=== PATIENT | female | born 1950 | race Two or more races ===

== ENCOUNTER → 2024-05-24 | Outpatient (CLI) | payer OTHER, SELFPAY ==
--- NOTE | 2024-05-24 | XR_ITS ---
Examination: Tibia-Fibula, right , 2 views Technique: Tibia-fibula AP lateral 2 views Date and time of exam: May 24, 2024 0816 hours INDICATIONS: Right lower leg pain beginning 6 months ago FINDINGS: Prominent osteopenia. No fracture or dislocation. No cortical bone destruction IMPRESSION: No fracture or dislocation
[2024-05-24 09:41] LABS: Basophils % (Auto) 0 % (0-2.5); Eosinophils # (Auto) 0.1 Thou/mm3 (0.0-0.5); Eosinophils % (Auto) 2 % (0-10); Hematocrit 36.7 % (36.0-46.0); Hemoglobin 12.2 g/dL (12.0-16.0); Immature Granulocytes % (Auto) 0 % (0-0); Immature Granulocytes Auto 0.02 Thou/mm3 (0.00-0.00); Lymphocytes # (Auto) 2.9 Thou/mm3 (1.0-4.8); Lymphocytes % (Auto) 32 % (10-50); Mean Corpuscular HGB Conc 33.2 g/dl (31.0-37.0); Mean Corpuscular Hemoglobin 27.3 pg (25.0-35.0); Mean Corpuscular Volume 82 fL (80-100); Monocytes # (Auto) 0.6 Thou/mm3 (0.0-0.8); Monocytes % (Auto) 7 % (0-12); Neutrophils # (Auto) 5.2 Thou/mm3 (1.8-7.7); Neutrophils % (Auto) 59 % (37-80); Nucleated Red Blood Cell % 0 /100 WBC (0); Platelet Count 296 Thou/mm3 (140-440); RDW Standard Deviation 40.2 fL (36.4-46.3); Red Blood Count 4.47 Miln/mm3 (4.00-5.20); White Blood Count 8.8 Thou/mm3 (3.6-11.0)
[2024-05-24 09:52] LABS: Glucose Estimated Average 151 mg/dL (80-131); Hemoglobin A1C 6.9 % Hgb (4.8-6.0)
[2024-05-24 09:55] LABS: Alanine Aminotransferase 15 U/L (10-49); Albumin, Serum 4.6 gm/dL (3.4-4.8); Alkaline Phosphatase 62 U/L (46-116); Anion Gap 10 (7-16); Aspartate Amino Transferase 16 U/L (0-34); BUN/Creatinine Ratio 17 Ratio (12-20); Bilirubin,Total 0.3 mg/dL (0.3-1.2); Blood Urea Nitrogen 12 mg/dL (9-23); Calcium 9.9 mg/dL (8.3-10.6); Calcium (Corrected) 9.9 mg/dL (8.5-10.1); Carbon Dioxide 25.7 mMol/L (20.0-31.0); Cardiac Risk Estimate 3.3 RATIO (3.7-5.6); Chloride 103 mMol/L (98-107); Cholesterol 177 mg/dL (132-200); Creatinine (Component) 0.7 mg/dL (0.6-1.3); Globulin 2.3 gm/dL (2.3-3.5); Glucose 120 mg/dL (74-106); HDL Cholesterol 54 mg/dL (40-60); LDL Cholesterol,Calculated 79 mg/dL (0-130); Osmolality,Calculated 278 (275-295); Potassium 4.6 mMol/L (3.4-5.1); Sodium 139 mMol/L (136-145); Total Protein 6.9 gm/dL (5.7-8.2); Triglycerides 221 mg/dL (30-150); eGFR > 60 See Note
[2024-05-30 06:59] LABS: Fecal Globin Result NOT DETECTED (NOT DETECTED)
== END | disposition home or self-care (01) ==
LOC: CDIM 07:34 → COPL 08:28
PROVIDERS: PCP Family Medicine; Referring Provider Family Medicine; Visit Provider Family Medicine
DX: Z12.11 Encounter for screening for malignant neoplasm of colon (principal); E11.65 Type 2 diabetes mellitus with hyperglycemia; M79.604 Pain in right leg
CPT/HCPCS: 36415; 73590; 80053; 80061; 82274; 83036; 85025; G0328

== ENCOUNTER 2024-06-26 14:56 | Emergency (ER) | payer OTHER, SELFPAY ==
[2024-06-26 15:08] VITALS: BP 181/91; BP 183/87; PULSE 71; RESP 20; TEMP 36.9; O2SAT 97
--- NOTE | 2024-06-26 15:19 | EKG_ITS ---
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: : 1950 Requested By: Arielle Adams Order Number: [id number] Reading MD: Arielle Adams Measurements Intervals [employer] [employer] Rate: 60 P: 76 CT: 198 QRS: -40 QRSD: 119 T: 70 QT: 473 QTc: 474 Interpretive Statements SINUS RHYTHM WITH OCCASIONAL SUPRAVENTRICULAR PREMATURE COMPLEXES LEFT AXIS DEVIATION [QRS AXIS < -30] LOW QRS VOLTAGE IN PRECORDIAL LEADS [QRS DEFLECTION < 1.0 mV IN CHEST LEADS] ANTEROSEPTAL MYOCARDIAL INFARCTION , OF INDETERMINATE AGE [40+ ms Q WAVE IN V1-V4] Compared to ECG 01/14/2024 10:12:50 Left-axis deviation now present Atrial fibrillation no longer present Myocardial infarct finding still present /store/S0/[id number]/ecg/[id number].pdf
--- NOTE | 2024-06-26 15:19 | XR_ITS ---
Examination: PA lateral chest 2 views TECHNIQUE: Upright PA lateral chest 2 views Exam date and time: June 26, 2024 1643 hours Comparison March 31, 2019 MEDICATIONS: Versed chest pain today FINDINGS: On the lateral view obscuration detail posterior right hemidiaphragm consistent with pneumonia in the posterior basal segment right lower lobe Left lung clear Minimal prominence left ventricle No pulmonary edema IMPRESSION: Early pneumonia posterior basal segment right lower lobe
--- NOTE | 2024-06-26 15:19 | XR_ITS ---
Examination: CT brain head without contrast. 2-D sagittal coronal reconstructions Date and time of exam:June 19 at 1615 hours INDICATIONS: Headaches weakness dizziness beginning last night CTDI: vol (mGy):55.3 DLP: (mGycm):1056 Technique: Multiple CT axial sections of the brain have been obtained, 5 mm slice thickness. Contrast has not been administered. 2-D sagittal, coronal reconstructions have been obtained Low dose protocols were performed. One or more of the following dose reduction techniques were used; automated exposure control, adjustment of the mA and/or KV according to patient size, use of iterative reconstruction technique. Findings: No significant ventricular enlargement. Intra-axial or extra-axial hemorrhage density is not seen. No mass effect or midline shift Basal cisterns are not remarkable. Fourth ventricle is midline. Cranial vault intact. Impression: Negative for acute hemorrhage, mass effect or midline shift If symptoms persist, consider brain MRI follow-up
--- NOTE | 2024-06-26 15:22 | PD.EDRME ---
Rapid Medical Screening Exam RME Arrival date/time: 06/26/24 14:56 This is a 74 year old female with multiple complaints. Patient complains of weakness, dizziness, shortness of breath and headache. I have greeted and performed a focused initial assessment of this patient. Initial appropriate labs ordered at this time. A comprehensive ED assessment and evaluation of the patient and analysis of all test and completion of medical decision making process will be conducted by additional ED provider. Chief Complaint: Dizziness Time Seen by Provider: 06/26/24 15:07 Vital signs: Vital Signs Temperature 98.4 F 06/26/24 15:08 Pulse Rate 71 06/26/24 15:08 Respiratory Rate 20 06/26/24 15:08 Blood Pressure 183/87 H 06/26/24 15:08 Pulse Oximetry (%) 97 06/26/24 15:08 Oxygen Delivery Method Room Air 06/26/24 15:08
[2024-06-26 15:40] LABS: Collection Type, Urine Voided
[2024-06-26 15:50] LABS: Basophils # (Auto) 0.1 Thou/mm3 (0.0-0.2); Basophils % (Auto) 0 % (0-2.5); Eosinophils # (Auto) 0.1 Thou/mm3 (0.0-0.5); Eosinophils % (Auto) 1 % (0-10); Hematocrit 36.2 % (36.0-46.0); Hemoglobin 12.1 g/dL (12.0-16.0); Immature Granulocytes % (Auto) 1 % (0-0); Immature Granulocytes Auto 0.08 Thou/mm3 (0.00-0.00); Lymphocytes % (Auto) 27 % (10-50); Mean Corpuscular HGB Conc 33.4 g/dl (31.0-37.0); Mean Corpuscular Hemoglobin 27.6 pg (25.0-35.0); Mean Corpuscular Volume 83 fL (80-100); Monocytes # (Auto) 0.8 Thou/mm3 (0.0-0.8); Monocytes % (Auto) 7 % (0-12); Neutrophils # (Auto) 7.3 Thou/mm3 (1.8-7.7); Neutrophils % (Auto) 64 % (37-80); Nucleated Red Blood Cell % 0 /100 WBC (0); Platelet Count 318 Thou/mm3 (140-440); Red Blood Count 4.38 Miln/mm3 (4.00-5.20); White Blood Count 11.3 Thou/mm3 (3.6-11.0)
[2024-06-26 16:01] LABS: B-Type Natriuretic Peptide 54 pg/mL (0-100)
[2024-06-26 16:03] LABS: Alanine Aminotransferase 11 U/L (10-49); Albumin, Serum 4.7 gm/dL (3.4-4.8); Albumin/Globulin Ratio 1.8 (1.2-2.2); Alkaline Phosphatase 76 U/L (46-116); Anion Gap 10 (7-16); Aspartate Amino Transferase 13 U/L (0-34); BUN/Creatinine Ratio 14 Ratio (12-20); Bilirubin,Total 0.2 mg/dL (0.3-1.2); Blood Urea Nitrogen 10 mg/dL (9-23); Calcium 9.6 mg/dL (8.3-10.6); Calcium (Corrected) 9.6 mg/dL (8.5-10.1); Carbon Dioxide 24.1 mMol/L (20.0-31.0); Chloride 102 mMol/L (98-107); Creatinine (Component) 0.7 mg/dL (0.6-1.3); Estimated Creatinine Clearance 69.3 mL/min (>60); Globulin 2.6 gm/dL (2.3-3.5); Glucose 204 mg/dL (74-106); Osmolality,Calculated 276 (275-295); Potassium 4.2 mMol/L (3.4-5.1); Sodium 136 mMol/L (136-145); Total Protein 7.3 gm/dL (5.7-8.2); Troponin I < 0.020 ng/mL (0.0-0.045); eGFR > 60 See Note
[2024-06-26 16:04] LABS: Bacteria,Urine 3+; Bilirubin,Urine Negative (Negative); Blood,Urine Trace (Negative); Color,Urine Lt-Yellow (Lt Yel-Yel); Glucose, Urine Negative (Negative); Ketones,Urine Negative (Negative); Leukocyte Esterase,Urine Positive (Negative); Nitrite,Urine Negative (Negative); Protein,Urine Negative (Neg - Trace); RBC,Urine 8 /hpf (0-3); Specific Gravity,Urine 1.008 (1.001-1.035); Squamous Epithelial Cell,Urine 3 /hpf (0-5); Transitional Epi Cells,Urine 1 /hpf (0-5); Urobilinogen,Urine Negative mg/dL (0.0-1.0); WBC,Urine 391 /hpf (0-5)
[2024-06-26 16:05] LABS: Clarity,Urine Cloudy (Clear/Hazy); Culture Indicated,Urine Yes
--- NOTE | 2024-06-26 16:56 | EDNOTE_ITS ---
<Statement entered by Karla Nunn MD - 06/27/24 14:42> As co-signing physician, I was present and available for consult prn. I concur with the plan and care as documented by the midlevel provider. ED General RME/HPI General Chief complaint: Dizziness Stated complaint: FEELS SO WEAK, DIZZY, SOB, HEADACHE R) CROWN Time Seen by Provider: 06/26/24 15:07 Arrival date/time: 06/26/24 14:56 CC: Weakness nausea chest pain painful urination HPI onset after having a syncopal episode night after going to the bathroom. The patient states he is continued to be weak. Currently at the time of the exam the patient only has weakness and nausea. No other complaints at this time. RME / HPI RME / HPI narrative: 06/26/24 14:56 This is a 74 year old female with multiple complaints Related Data Home Medications ?Medication ?Instructions ?Recorded ?Confirmed aspirin 81 mg tablet,delayed 1 tab PO HS ##0 12/26/13 01/13/24 release (Aspir-) metformin 1,000 mg tablet 1,000 mg PO BID #0 tabs 12/0101/13/24 (Glucophage) omega 1-lzg-qth-fish oil 1,000 mg 1 tab PO DAILY #0 ca ps 12/26/13 01/13/24 (120 mg-180 mg) capsule (Fish Oil) glipizide 5 mg tablet 5 mg PO TID 09/04/17 4 insulin glargine 100 unit/mL 28 unit subcut QDAY 09/0401/13/24 subcutaneous solution (Lantus U-100 Insulin) vitamin E 268 mg (400 unit) capsule 400 unit PO QDAY 0 09/04/17 01/13/24 semaglutide 0.25 mg or 0.5 mg (2 0.25 mg subcut QWEEK 11/10/23 01/13/24 mg/1.5 mL) subcutaneous pen injector (Ozempic) ramipril 10 mg capsule 10 mg PO BID 01/13/24 Previous Rx's ?Medication ?Instructions ?Recorded acetaminophen 300 mg-codeine 30 mg 1 tab PO Q4H PRN pa in #20 tabs 01/14/24 tablet cephalexin 500 mg capsule 500 mg PO BID #3 caps ciprofloxacin HCl 500 mg tablet 500 mg PO BID #14 tabs 06/26/24 (Cipro) Allergies Allergy/AdvReac Type Severity Reaction Status Date / Time No Known Allergies Allergy Verified 06/26/24 15:02 Review of Systems Review of Systems Narrative Review of Systems: GEN: No fever, no chills, no weight loss EYES: No discharge, no visual changes, no pain HEENT: No ear pain, no congestion, no sore throat PULM: No shortness of breath, no cough, no congestion CV: + chest pain, no dyspnea on exertion, no palpitations GI: No nausea, no vomiting, no diarrhea, no pain, no constipation : No frequency, no urgency, no dysuria MUSC/SKEL: No joint pain, no back pain SKIN: No rash PSYCH: No hallucinations, no depression HEME/LYMPH: No easy bleeding or bruising tendencies NEURO: + weakness, no headache Past Medical History Past Medical History NEUROLOGIC: Negative Neurological Disorders or Seizures CARDIAC: Positive Cardiac Disorders, Hypertension and Varicose Veins; Negative Congestive Heart Failure RESPIRATORY: Positive Pneumonia; Negative Chronic Obstructive Pulmonary Disease (COPD) GASTROINTESTINAL: Positive Gastrointestinal Disorders (Diarrhea), Gall Bladder Disease, Gastroesophageal Reflux Disease and Obesity; Negative Hepatitis GENITOURINARY: Negative Genitourinary Disorders or Renal Disease REPRODUCTIVE: Positive Previous Pregnancies (X4) MUSCULOSKELETAL: Positive Musculoskeletal Disorders and Degenerative Disk Disease ENT: Positive Ear Infection ENDOCRINE: Positive Endocrine Disorders and Diabetes Mellitus Type 2 (TAKES PO MED AND INSULIN); Negative Diabetes Mellitus Type 1 HEMATOLOGIC: Positive Blood Disorders and Anemia (in the past) PSYCHO/SOCIAL: Positive Depression OTHER HISTORY: Positive Hospitalization and Autoimmune Disease; Negative Shingles, Falls, Blood Transfusions, Blood Transfusion Reaction, Anesthesia Reactions or Cancer Family History FAMILY HISTORY: Positive Family Cardiac Disorders (MOTHER (HTN)), Family Cancer (BROTHER) and Family Surgery (BROTHER,MOTHER,SISTER); Negative Family Psychiatric Problems, Family Respiratory Disorders, Family Gastrointestinal Problems or Family Anesthesia Reaction Surgical History SURGICAL: Positive Angiogram (coronary, clear), Ear Surgery (LEFT 08/2017), Tonsillectomy, Abdominal Surgery, Arthroscopy (RIGHT), Lumpectomy (LIONEL), Hysterectomy (LIONEL SALP) and Section (X1); Negative Cardiac Surgery Social History SMOKING STATUS: Never smoker SUBSTANCE USE: does not use ED Exam Narrative Physical exam: [General: Obese not in any acute distress Head normocephalic HEENT: Eyes pupils are PERRLA EOMs are intact mouth pink dry membranes uvula is midline swallow symmetrical phonation is normal. Within acceptable limits Neck is supple nontender Chest equal chest rise nontender to palpation Respiratory: Clear to auscultation no wheezes crackles or rubs CV: Rate rhythm is regular no murmurs rubs or clicks Abdomen is distended secondary to body habitus soft nontender no masses positive bowel sounds all 4 quadrants Back: No CVA tenderness no spinous process tenderness from cervical spine thoracic and lumbar spine Skin: Intact no petechiae rash induration ulceration or crepitus Extremities: Moving all extremity against resistance cap refill less than 2 seconds neurosensory intact Neuro: Awake alert oriented x3 Glascow coma 15 no focal deficits] Course Quality Measures none Orders Category Date Time Status EKG (ED ONLY) *Do not use* NOW Care 06/26/24 15:[address] head/brain wo con Stat Exams 06/26/24 15:19 Completed EKG (ED Only) Stat Exams 06/26/24 15:19 Draft XR chest 2V Stat Exams 06/26/24 15:19 Completed BNP [B-Type Natriuretic Peptide] Stat Lab 06/26/24 15:33 Completed CBC Stat Lab 06/26/24 15:33 Completed Comprehensive Metabolic Panel Stat Lab 06/26/24 15:33 Completed Troponin I Stat Lab 06/26/24 15:33 Completed Urinalysis, C/S if Indicated Stat Lab 06/26/24 15:36 Completed Urine Culture Stat Lab 06/26/24 15:36 Received Ondansetron Odt [Zofran Odt] Med 06/26/24 17:03 Discontinued 4 mg PO X1 ONE cefTRIAXone [Rocephin] 1,000 mg Med 06/26/24 17:03 Discontinued Lidocaine 1% 20 ml [Xylocaine 1% 20 ML] 2.1 ml IM X1 Vital Signs Vital signs: Vital Signs Temperature 98.4 F 06/26/24 15:08 Pulse Rate 71 06/26/24 15:08 Respiratory Rate 20 06/26/24 15:08 Blood Pressure 183/87 H 06/26/24 15:08 Pulse Oximetry (%) 97 06/26/24 15:08 Oxygen Delivery Method Room Air 06/26/24 15:08 Discharge Plan Plan Patient Disposition: HOME (Self Care) Patient condition on transfer: Stable Prescriptions/Referrals Prescriptions/Med Rec: New ciprofloxacin HCl [Cipro] 500 mg tablet 500 mg PO BID Qty: 14 0RF No Action aspirin [Aspir-81] 81 mg Tablet,Delayed Release (Dr/Ec) 1 tab PO HS Qty: 0 metformin [Glucophage] 1,000 MG tablet 1,000 mg PO BID Qty: 0 omega 9-mxv-mvp-fish oil [Fish Oil] 1,000 mg (120 mg-180 mg) Capsule 1 tab PO DAILY Qty: 0 glipizide 5 mg Tablet 5 mg PO TID insulin glargine [Lantus U-100 Insulin] 100 unit/mL Solution 28 unit SUB-Q QDAY vitamin E 400 unit Capsule 400 unit PO QDAY Ozempic 0.25 mg or 0.5 mg(2 mg/1.5 mL) Pen Injector 0.25 mg SUBCUT QWEEK Rx Instructions: for 4 weeks ramipril 10 mg Capsule 10 mg PO BID cephalexin 500 mg capsule 500 mg PO BID Qty: 3 0RF Rx Instructions: Begin first dose tonight acetaminophen-codeine 300-30 mg tablet 1 tab PO Q4H PRN (Reason: pain) Qty: 20 0RF Referrals: Antonino Veliz MD [Primary Care Provider] - In 1 week Problem List Clinical Impression: Acute UTI, Weakness Patient/Caregiver Discharge Instructions Other Activity Instructions:: Take the medications as prescribed if there is a worsening of symptoms return the emergency room medially for further evaluation. Education Materials: Urinary Tract Infections in Women Print Language: Croatian Stand Alone Forms: Hallie Award Info., Patient Portal Info Letter MDM Patient Acuity Low Acuity (complete MDM as needed) Clinical Information Provided by: patient Medical Records reviewed [facility] Meds/Rx considered, not ordered None Labs/Rad/Tests considered, not ordered None Chronic Illness/Social Conditions which may negatively complicate care or outcome(s)-explain: None or not applicable EKG EKG Interpretation(s): EKG performed at 1523 shows a ventricular rate of 60 RI interval 198 QRS of 119 QTc of 473 the sinus rhythm occasional PAC. Labs Lab(s) Interpretation(s): CBC shows a mild leukocytosis of 11.3 no anemia thrombocytopenia CMP shows no acute electrolyte imbalances other than a glucose glucose of 204. T. bili at 0.2 no transaminitis Troponin and BNP within acceptable limits Urine is cloudy with 391 WBCs and 3+ bacteria. Imaging Imaging Interpretation(s): CT of the head is interpreted by me read by radiology as negative for any acute finding Medication Administration(s) Medication Administration History Discontinued Medications Ceftriaxone Sodium 1,000 mg/ (Lidocaine HCl 2.1 ml) 0 mg IM X1 ONE Stop: 06/26/24 17:04 Last Admin: 06/26/24 17:16 Dose: 1,000 mg Documented By: YULIA Ondansetron HCl (Ondansetron Odt 4 Mg Tabrap) 4 mg PO X1 ONE; Protocol Stop: 06/26/24 17:04 Last Admin: 06/26/24 17:19 Dose: 4 mg Documented By: YULIA
[2024-06-26 17:08] VITALS: BP 182/103; PULSE 66; RESP 16; TEMP 37.1; O2SAT 99
[2024-06-26] MEDS: cefTRIAXone 1,000 MG, LIDOCAINE 1% 20 ML 2.1 ML IM (17:16)
[2024-06-26] MEDS: ONDANSETRON ODT 4 MG TABRAP PO (17:19)
== END 2024-06-26 17:24 | disposition home or self-care (01) ==
PROVIDERS: Nurse Practitioner Family; Emergency Provider Emergency Medicine; PCP Family Medicine
DX: N39.0 Urinary tract infection, site not specified (principal); R53.1 Weakness; R07.9 Chest pain, unspecified; R51.9 Headache, unspecified
CPT/HCPCS: 36415; 70450; 71046; 80053; 81001; 83880; 84484; 85025; 87077; 87086; 87186; 93005; 96372; 99284; J0696; J3490; Q0162

== ENCOUNTER → 2024-07-12 | Outpatient (CLI) | payer OTHER, SELFPAY ==
--- NOTE | 2024-07-12 13:30 | XR_ITS ---
Examination: Screening digital mammography, bilateral Computer aided detection 3-D breast Tomosynthesis, bilateral Date and time of exam: July 12, 2024 1326 hours Compared to mammograms dating to December 17, 2020 Indication: Screening Technique: Nonmagnified MLO, CC views of the breasts to been obtained, reconstructed from 3-D Tomosynthesis images. R2 computer aided detection program utilized for evaluation of suspicious masses and/or abnormal calcifications. 3-D Tomosynthesis images obtained. Findings: Scattered areas of fibroglandular density. 5 mm partially circumscribed nodule upper outer right breast posterior depth Benign calcifications Impression: BI-RADS Category 0: Incomplete: Need additional imaging evaluation 5 mm partially circumscribed nodule upper outer right breast posterior depth, recommend follow-up spot tomographic views of this nodule as well as right breast sonography to complete the workup
== END | disposition home or self-care (01) ==
PROVIDERS: PCP Family Medicine; Referring Provider Registered Nurse; Visit Provider Registered Nurse
DX: Z12.31 Encounter for screening mammogram for malignant neoplasm of breast (principal); R92.8 Other abnormal and inconclusive findings on diagnostic imaging of breast; N63.11 Unspecified lump in the right breast, upper outer quadrant
CPT/HCPCS: 77063; 77067

== ENCOUNTER 2024-07-21 05:45 | Day surgery (SDC) | payer OTHER, SELFPAY ==
[2024-07-20 09:53] VITALS: BMI 30.4
[2024-07-20 11:22] LABS: Alanine Aminotransferase 16 U/L (10-49); Albumin, Serum 4.8 gm/dL (3.4-4.8); Albumin/Globulin Ratio 1.9 (1.2-2.2); Alkaline Phosphatase 70 U/L (46-116); Anion Gap 14 (7-16); Aspartate Amino Transferase 16 U/L (0-34); BUN/Creatinine Ratio 14 Ratio (12-20); Bilirubin,Total 0.3 mg/dL (0.3-1.2); Blood Urea Nitrogen 11 mg/dL (9-23); Carbon Dioxide 24.2 mMol/L (20.0-31.0); Chloride 97 mMol/L (98-107); Creatinine (Component) 0.8 mg/dL (0.6-1.3); Estimated Creatinine Clearance 62.9 mL/min (>60); Globulin 2.5 gm/dL (2.3-3.5); Glucose 155 mg/dL (74-106); Osmolality,Calculated 272 (275-295); Potassium 4.2 mMol/L (3.4-5.1); Sodium 135 mMol/L (136-145); Total Protein 7.3 gm/dL (5.7-8.2); eGFR > 60 See Note
[2024-07-21] VITALS (9 sets, daily range): BP systolic 138–172; BP diastolic 62–84; PULSE 54–76; RESP 12–17; TEMP 36.7; O2SAT 95–100; BMI 32.3
--- NOTE | 2024-07-21 10:34 | ESOP_ITS ---
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 Findings Large posterior marginal perforation encompassing 70% of the tympanic membrane. The ossicular chain was intact and mobile. The long process of the malleus was shortened. Mastoid cavity was very sclerotic and showed evidence of prior ma stoidectomy. Procedure Description Indications: This is a 74-year-old female with persistent and recurring perforation and hearing loss in the left ear. She has had 2 prior attempts that were unsuccessful in repairing the perforation. She wished to try 1 more time. Recommended that we proceed with a revision mastoidectomy at this time as well. Risk of bleeding infection facial nerve paralysis decreased sense of hearing dizziness and tinnitus as well as decreased sense of taste were discussed with her. Patient was marked and shaved in the preoperative setting then transferred to the operative suite where she was anesthetized and intubated. Timeout was performed. The facial nerve monitor electrodes were placed in usual fashion for the left ear. The patient was then sterilely prepped and draped. The external canal as well as the postauricular area were injected with 1% lidocaine with 1 100,000 dilution epinephrine. Approximately 5 cc total were used. The canal was irrigated with warm saline solution and suction. Perforation was visualized and the margins were prepped anteriorly and inferiorly. The drum was elevated up off of the long process of the malleus as well. Posterior tympanomeatal flap was created in the was turned forward. The incostapedial joint was visualized and mobility tested. Posterior vascular strip was elevated. Postauricular incision was then created as well as a palva flap. Temporalis/scar tissue was harvested for later grafting purposes. The ear was turned forward and held in place with self-retaining retractors. Evidence of prior mastoidectomy was visualized. This was expanded with most of the drilling concentrated in the superior portion of the mastoid. No drilling was performed over the facial nerve itself over the horizontal canal. The drilling terminated once the body of the incus was visualized. Care was taken not to injure it as well. Flow was established through the middle ear into the mastoid cavity was visualized with the suction. Mastoid cavity was irrigated with saline solution and suction. Surgifoam was placed in the middle ear and the graft brought into place. It was placed in and underlay fashion over the long process of the malleus and on top of the packing. More packing dipped in saline was placed on top of the graft once the posterior tympanomeatal flap was returned back to its normal position. The ear was turned back and the postauricular incision closed in a multilayer fashion with 4-0 Vicryl and then Dermabond on the skin. External meatus is packed with antibiotic ointment Adaptic and a sterile cottonball. Facial nerve monitoring electrodes were removed the patient was awakened and taken the recovery room in stable condition Anesthesia GETA Pathology / specimen None Estimated Blood Loss 5 Surgeon Jan Mason DO Surgical Staff Operation Date: 07/21/24 08:15 Case Staff Anesthesiologist: Jw Cardenas
--- NOTE | 2024-07-21 10:53 | SUR.PHASEI ---
1022: Pt received in [facility] via gurney. Report from Yarelis MARC and Dr. Marin. Pt obtunded. Oral airway in place. Resp even, unlabored. VS stable. Dressing to left ear dry, clean, intact. [place] in place. 1026: Oral airway dc'd. Resp even, unlabored. 1050: Pt has been resting with no complaints voiced. Resp even, unlabored. VS stable. Denies pain.
--- NOTE | 2024-07-21 11:55 | SUR.PHASEII ---
1115: Pt has been resting with no complaints voiced. VS stable. Denies pain. Dressing has remained dry, clean, intact. Pt sitting up tolerating po fluids with no difficulty swallowing and no n/v. 1140: Pt fully awake, oriented x3. Pt dressed and assisted to transport chair. Ambulation steady. Pt and son stated understanding of discharge instructions. Pt also instructed to mixing picker tender her prescriptions at [facility]. Pt discharged from [facility] in stable condition.
== END 2024-07-21 11:40 | disposition home or self-care (01) ==
PROVIDERS: PCP Family Medicine; Referring Provider Otolaryngology; Visit Provider Otolaryngology
PROC: (CPT 69502; principal; 2024-07-21 08:00)
DX: H72.92 Unspecified perforation of tympanic membrane, left ear (principal); L90.5 Scar conditions and fibrosis of skin; H90.6 Mixed conductive and sensorineural hearing loss, bilateral
CPT/HCPCS: 69643; 36415; 80053; A4217; A4649; J0171; J0461; J0690; J1885; J2250; J2371; J2704; J3010; J3473; J3490; J7040; A9270

== ENCOUNTER → 2024-08-15 | Outpatient (CLI) | payer OTHER, SELFPAY ==
--- NOTE | 2024-08-15 09:00 | XR_ITS ---
Examination: Breast ultrasound, unilateral, right complete Date and time of exam: August 15, 2024 0918 hours INDICATIONS: Mammogram July 12, 2024 5 mm nodule upper outer right breast posterior depth Technique: Real-time villa scale ultrasonographic imaging performed right breast including all 4 quadrants as well as nipple retroareolar and axillary region. Findings: 12:00 cyst 5 x 5 mm 9:00 cyst 6 x 5 mm No solid nodules IMPRESSION: BI-RADS Category 2: Benign findings
--- NOTE | 2024-08-15 09:30 | XR_ITS ---
Examination: Diagnostic digital mammography, unilateral, right Computer aided detection 3-D breast Tomosynthesis, unilateral Date and time of exam: August 15, 2024 0943 hours Compared to mammograms dating to December 26, 2021 Technique: Nonmagnified MLO, CC views of the right breast have been obtained, reconstructed from 3-D Tomosynthesis images. R2 computer aided detection program utilized for evaluation of suspicious masses and/or abnormal calcifications. 3-D Tomosynthesis images obtained. Findings: Scattered areas of fibroglandular density Stable circumscribed nodule upper outer right breast No interval suspicious masses Impression: BI-RADS category 2: Benign findings Recommend yearly follow-up mammography
[2024-08-15 10:55] LABS: Basophils % (Auto) 0 % (0-2.5); Eosinophils # (Auto) 0.1 Thou/mm3 (0.0-0.5); Eosinophils % (Auto) 1 % (0-10); Hematocrit 35.8 % (36.0-46.0); Immature Granulocytes % (Auto) 0 % (0-0); Immature Granulocytes Auto 0.03 Thou/mm3 (0.00-0.00); Lymphocytes # (Auto) 2.5 Thou/mm3 (1.0-4.8); Lymphocytes % (Auto) 28 % (10-50); Mean Corpuscular HGB Conc 33.5 g/dl (31.0-37.0); Mean Corpuscular Hemoglobin 27.7 pg (25.0-35.0); Mean Corpuscular Volume 83 fL (80-100); Monocytes # (Auto) 0.7 Thou/mm3 (0.0-0.8); Monocytes % (Auto) 8 % (0-12); Neutrophils # (Auto) 5.6 Thou/mm3 (1.8-7.7); Neutrophils % (Auto) 62 % (37-80); Nucleated Red Blood Cell % 0 /100 WBC (0); Platelet Count 309 Thou/mm3 (140-440); RDW Standard Deviation 41.9 fL (36.4-46.3); Red Blood Count 4.33 Miln/mm3 (4.00-5.20); White Blood Count 9.1 Thou/mm3 (3.6-11.0)
[2024-08-15 10:58] LABS: Glucose Estimated Average 151 mg/dL (80-131); Hemoglobin A1C 6.9 % Hgb (4.8-6.0)
[2024-08-15 11:13] LABS: Alanine Aminotransferase 13 U/L (10-49); Albumin, Serum 4.4 gm/dL (3.4-4.8); Alkaline Phosphatase 66 U/L (46-116); Anion Gap 13 (7-16); Aspartate Amino Transferase 16 U/L (0-34); BUN/Creatinine Ratio 11 Ratio (12-20); Bilirubin,Total 0.3 mg/dL (0.3-1.2); Blood Urea Nitrogen 9 mg/dL (9-23); Calcium 9.1 mg/dL (8.3-10.6); Calcium (Corrected) 9.1 mg/dL (8.5-10.1); Carbon Dioxide 23.3 mMol/L (20.0-31.0); Chloride 104 mMol/L (98-107); Creatinine (Component) 0.8 mg/dL (0.6-1.3); Globulin 2.2 gm/dL (2.3-3.5); Glucose 180 mg/dL (74-106); Osmolality,Calculated 283 (275-295); Potassium 4.2 mMol/L (3.4-5.1); Sodium 140 mMol/L (136-145); Total Protein 6.6 gm/dL (5.7-8.2); eGFR > 60 See Note
[2024-08-15 11:35] LABS: Creatinine MALB Rnd Ur 63 mg/dL (30-125); Microalbumin Creat Ratio 38 mg/gCrea (<30); Microalbumin, Random Urine 24 mg/L (0-300)
== END | disposition home or self-care (01) ==
LOC: CDIM 09:11 → COPL 09:52
PROVIDERS: PCP Family Medicine; Referring Provider Registered Nurse; Visit Provider Radiology Diagnostic Radiology
DX: R92.8 Other abnormal and inconclusive findings on diagnostic imaging of breast (principal); R92.321 Mammographic fibroglandular density, right breast
CPT/HCPCS: 36415; 76641; 77061; 77065; 80053; 82043; 82570; 83036; 85025; G0279

== ENCOUNTER → 2024-10-05 | Outpatient (CLI) | payer OTHER, SELFPAY ==
--- NOTE | 2024-10-05 12:20 | XR_ITS ---
Examination: Bone densitometry Date and time of exam:October 05, 2024 1313 hours INDICATIONS: Hysterectomy age 35, estrogen 3 years vitamin D 3 years, personal history osteopenia Technique: Lumbar spine and hip total bone mineralization values of an calculated. Peak reference and age match control results have been displayed. Findings: Lumbar spine total bone mineralization is1.021 gm/cm2. This is 0.2 standard deviations below peak reference. This is 2.0 standard deviations above age-matched controls. Hip total bone mineralization is 1.085 gm/cm2 This is 1.2 standard deviations above peak reference. This is 2.8 standard deviations above age-matched controls Impression: There is normal mineralization based on lumbar spine measurements. There is normal mineralization based on hip measurements Lumbar mineralization is increased 1.8% compared with October 02, 2022 Hip mineralization is decreased 2.4% compared with October 02, 2022
== END | disposition home or self-care (01) ==
LOC: CDIM 12:38
PROVIDERS: PCP Family Medicine; Referring Provider Registered Nurse; Visit Provider Registered Nurse
DX: M81.0 Age-related osteoporosis without current pathological fracture (principal)
CPT/HCPCS: 77080

== ENCOUNTER → 2024-10-06 | Outpatient (BNVA) | payer OTHER, SELFPAY | END | disposition home or self-care (01) | PROVIDERS: PCP Registered Nurse; Referring Provider Registered Nurse; Visit Provider Urology | DX: N39.0 Urinary tract infection, site not specified (principal); N39.46 Mixed incontinence; E11.9 Type 2 diabetes mellitus without complications; I10 Essential (primary) hypertension; E66.9 Obesity, unspecified; Z71.3 Dietary counseling and surveillance; Z68.30 Body mass index [BMI] 30.0-30.9, adult; K21.9 Gastro-esophageal reflux disease without esophagitis | CPT/HCPCS: 81003; 99213; G0463 ==

== ENCOUNTER → 2024-11-25 | Outpatient (BNVA) | payer OTHER, SELFPAY | END | disposition home or self-care (01) | PROVIDERS: PCP Registered Nurse; Referring Provider Registered Nurse; Visit Provider Urology | DX: N35.92 Unspecified urethral stricture, female (principal); Z87.440 Personal history of urinary (tract) infections; I10 Essential (primary) hypertension; E11.9 Type 2 diabetes mellitus without complications; K21.9 Gastro-esophageal reflux disease without esophagitis; E66.9 Obesity, unspecified; Z68.30 Body mass index [BMI] 30.0-30.9, adult | CPT/HCPCS: 52281; 81003; 96372; A4217; A4649; C1894; J1580; A9270 ==

== ENCOUNTER → 2024-12-06 | Outpatient (CLI) | payer OTHER, SELFPAY ==
[2024-12-06 09:44] LABS: Anion Gap 11 (7-16); BUN/Creatinine Ratio 11 Ratio (12-20); Blood Urea Nitrogen 8 mg/dL (9-23); Calcium 9.9 mg/dL (8.3-10.6); Carbon Dioxide 25.5 mMol/L (20.0-31.0); Chloride 98 mMol/L (98-107); Creatinine (Component) 0.7 mg/dL (0.6-1.3); Glucose 107 mg/dL (74-106); Osmolality,Calculated 266 (275-295); Potassium 4.1 mMol/L (3.4-5.1); Sodium 134 mMol/L (136-145); eGFR > 60 See Note
== END | disposition home or self-care (01) ==
LOC: COPL 07:49
PROVIDERS: PCP Family Medicine; Referring Provider Family Medicine; Visit Provider Family Medicine
DX: I10 Essential (primary) hypertension (principal); E11.65 Type 2 diabetes mellitus with hyperglycemia
CPT/HCPCS: 36415; 80048

== ENCOUNTER → 2024-12-15 | Outpatient (CLI) | payer OTHER, SELFPAY ==
--- NOTE | 2024-12-15 11:30 | XR_ITS ---
Examination: CT abdomen with intravenous contrast CT pelvis with intravenous contrast 2-D coronal reconstructions 2-D sagittal reconstructions Date and time of exam: December 15, 2024, 12:29 p.m., comparison fibroid 2020 INDICATIONS: Abdominal distention post bladder surgery 1 month ago CTDI: vol (mGy) 20.4 DLP: (mGycm) 744 Technique: Multiple axial sections of the abdomen and pelvis have been obtained. 64 slice high-resolution scanner used. 3 mm axial sections have been obtained, post intravenous injection 60 cc [id number] 2-D sagittal, coronal reconstructions obtained. Low dose protocols were performed. One or more of the following dose reduction techniques were used; automated exposure control, adjustment of the mA and/or KV according to patient size, use of iterative reconstruction technique. Findings: No focal liver or splenic lesions Absent gallbladder No pancreatic or adrenal mass Mild right hydronephrosis secondary to 6 mm proximal right ureteral calculus No bowel obstruction No diverticulitis although colonic diverticulosis is present No bladder mass or bladder calculi No pelvic mass IMPRESSION: Mild right hydronephrosis secondary to 6 mm proximal right ureteral calculus
== END | disposition home or self-care (01) ==
LOC: SCAT 11:13
PROVIDERS: PCP Family Medicine; Referring Provider Urology; Visit Provider Urology
DX: N20.0 Calculus of kidney (principal); N13.30 Unspecified hydronephrosis
CPT/HCPCS: 74177; A4649; Q9967